=== PATIENT | female | born 1995 | race Caucasian/White ===

== ENCOUNTER 2023-02-09 13:45 | Inpatient (IN) | payer OTHER ==
[~2023-02-09] VITALS: Ht 165.1 cm; Wt 3.2 kg
[2023-02-17] MEDS ORDERED: PRENATABS RX T1 EACH PO (07:38)
== END 2023-02-19 13:32 | disposition home or self-care (01) | DRG 788 ==
LOC: OB/GYN 02-17 06:44 → LDR 02-17 06:44 → O/R 02-17 18:12 → OB/GYN 02-17 20:41
PROVIDERS: Obstetrics & Gynecology Gynecology; ADMIT Obstetrics & Gynecology; ATTEND Obstetrics & Gynecology
PROC: 4A1HXCZ Monitoring of Products of Conception, Cardiac Rate, External Approach (ICD-10-PCS; 2023-02-17)
PROC: 10D00Z1 Extraction of Products of Conception, Low, Open Approach (ICD-10-PCS; principal; 2023-02-17 20:00)
DX: O82 Encounter for cesarean delivery without indication (principal); Z3A.39 39 weeks gestation of pregnancy; Z37.0 Single live birth; Z20.822 Contact with and (suspected) exposure to COVID-19